=== PATIENT | male | born 1980 | race Caucasian/White ===

== ENCOUNTER 2024-12-28 08:50 | Outpatient (AMB) | payer OTHER, SELFPAY ==
--- NOTE | 2024-12-28 08:54 | MHC.OFFVIS ---
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 Accompanied by: Spouse Allergies egg Allergy (Unknown, Verified 12/28/24 09:39) Unknown latex Allergy (Unknown, Verified 12/28/24 09:39) Unknown Medication List - Last Reconciled 12/28/24 by Nataly Vasquez, HAN erenumab-aooe (Aimovig Autoinjector) 140 mg subcut Q4W loratadine 10 mg PO DAILY PRN metformin 500 mg PO DAILY montelukast 10 mg PO QPM pregabalin 75 mg PO BEDTIME rosuvastatin 5 mg PO DAILY HPI Comments Details: Chepe is a 44-year-old male patient with a past medical history of Asperger's disorder, chronic cervical pain, chronic low back pain, degenerative arthritis of the cervical spine, migraines with aura, mood disorder, insomnia, and tremor of both hands who I was following at [facility] for migraine. He is here today to reestablish care as a new patient at [facility]. Chepe has had headaches since childhood and have perhaps worsened into his adulthood. Headaches have always been a part of his day-to-day life and he feels that his headaches have been relatively consistent the wax and wane in severity and intensity but can become incapacitating. Headaches can often be accompanied by colors in his vision, light sensitivity, sound sensitivity, and nausea as well as vomiting when headaches become more severe. His headaches can be holocephalic. He has tried numerous first-line agents in the past that have been unsuccessful including: Topiramate-no benefit Lyrica-no benefit Aimovig-no benefit Emgality-no benefit Aimovig-140 currently on with some benefit Ubrelvy-no benefit Since the time of our last visit together, he does feel that the Aimovig 140 subcutaneous monthly injections have helped to improve the severity of his migraines. He still however has a migraine/some level of head pain every day. Head pain can move around but sometimes can be holocephalic or predominantly behind his right eye. Pain can be sharp or throbbing. He continues to have nausea, vomiting, severe light and sound sensitivity with many of his more intense migraines. Unfortunately, Ubrelvy has not helped him for acute therapy. He has tried his girlfriend's Nurtec in the past which has been significantly beneficial for acute treatment. He mentions today that his sleep quality has been extremely poor. In addition to difficulty initiating and maintaining sleep on a regular basis, he also knows profound clenching of his teeth at night. He has tried mouth guards in the past which did not help the clenching but helped him to prevent breaking his teeth. He has however lost his mouth guard. In the past, he has tried clonidine which was not beneficial to his sleep and trazodone gave him nightmares. He believes that his sleep may be a significant factor for his ongoing migraines. He also notes that his right wrist has been extremely painful. Pain radiates into his hand and at times causes some numbness and tingling sensations throughout the whole hand. He does not have any pain in the upper part of his extremity however the pain is more localized to the wrist and hand area. This has been impacting his ability to work on his computer. He does note that he has had an EMG study perhaps about 4 years ago and he remembers that it was normal at that time. His symptoms however since then have worsened. 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) Seasonal allergies Transaminitis Urinary frequency Tremor of both hands Schizotypal personality disorder Pompholyx eczema Polyarthralgia Other insomnia Obesity Mood disorder Migraine without aura Chronic low back pain Chronic cervical pain Asperger's disorder Review of Systems Const All systems reviewed & are unremarkable except as noted in HPI and below Physical Exam Vital Signs: Last Vital Signs Pulse 79 12/28/24 09:40 Resp 16 12/28/24 09:40 BP 124/72 12/28/24 09:40 Pulse Ox 97 12/28/24 09:40 Oxygen Delivery Method Room Air 12/28/24 09:40 BMI result Body Mass Index 26.5 Const General: cooperative, healthy appearing, comfortable and no acute distress Nutritional Appearance: well nourished Orientation/consciousness: patient oriented x3 Limitations: no limitations HEENT Head: Yes normal to inspection and Yes normocephalic Eyes General: appearance normal, both eyes and all related structures Visual Gonzalez: normal visual gonzalez by confrontation Alignment and Position: alignment normal Periorbital: periorbital findings normal Eyelids: Yes eyelids normal Conjunctivae: conjunctivae normal Sclerae: sclerae normal Neuro General: patient oriented x3, tone normal and deep tendon reflexes 2+ bilaterally Cranial nerves: Yes CN's II-XII intact bilaterally and Yes Facial sensation intact/muscles of mastication intact Cognition (Neuro): normal cognition Gait exam (Neuro): Normal gait present Motor exam (neuro): 5/5 motor strength present throughout, no tremor noted and Other motor observations present (No weakness to his R wrist however he did have pain to his R wrist with ROM) Sensory Exam: double simultaneous stimulation for sensation normal Romberg Test: Negative Pupils: Normal pupillary reactivity/response: bilateral Psych Appearance: grossly normal Mental Status: mental status grossly normal Speech and movement: Normal speech and movement present and Clear speech present Affect: normal affect Attitude: cooperative Thought process: Normal thought process present Thought content: Normal thought content present Insight: Good insight present (Psych) Judgement: Good judgement present (Psych) Assessment & Plan Assessment & Plan (1) Chronic migraine without aura without status migrainosus, not intractable: Code(s): G43.709 - Chronic migraine without aura, not intractable, without status migrainosus Category: Medical (2) Insomnia: Code(s): G47.00 - Insomnia, unspecified Category: Medical (3) Right wrist pain: Code(s): M25.531 - Pain in right wrist Category: Medical Plan Chepe is a 44-year-old male patient with a past medical history of Asperger's disorder, chronic cervical pain, chronic low back pain, degenerative arthritis of the cervical spine, migraines with aura, mood disorder, insomnia, and tremor of both hands who I was following at [facility] for migraine. He is here today to reestablish care as a new patient at [facility]. His migraines have improved some in terms of severity now that he is on the Aimovig 140 subcutaneous monthly injections. He has tried his girlfriend's Nurtec in the past with some improvement. He has not had any improvement with the Ubrelvy. I will send for a trial of Nurtec and he did receive samples today. Sleep may be playing a role in his migraines. I will send for a trial of Ambien 5 mg. He was educated on the risks of this medication and how to take it safely. He was advised to take his Lyrica earlier in the evening and not take them at the same time to avoid excessive somnolence. In regards to his right hand and wrist pain/paresthesias. I think it be reasonable to perform another EMG study provided that it has been several years since he has had an EMG study and his symptoms have worsened. -continue Aimovig 140 mg subcutaneous monthly injection -start a trial of Nurtec 75 mg for abortive therapy. (Samples were provided during today's visit: 2 boxes with lot numbers: [id number] and expiration 09/2026) -small supply of Fioricet provided for emergency purposes only. Eight tablets provided for the month -trial of Ambien 5 mg at bedtime for sleep. Patient was educated on side effects and risks when taking Ambien -EMG right wrist to rule out CTS vs. Cervical radiculopathy -follow up in 1 month Medications: New zolpidem (Ambien) 5 mg PO BEDTIME PRN 30 tabs 5RF sleep rimegepant (Nurtec ODT) 75 mg PO Q OTHER DAY PRN 8 tabs 5RF migraine headache fuhiippiwz-qfbkxevgshvga-todr 50-325-40 mg 1 tab PO Q6H PRN 8 tabs 0RF pain Coding Level of Care Code New Pt Level 4 (94534) Diagnoses Chronic migraine without aura without status migrainosus, not intractable G43.709 Insomnia G47.00 Right wrist pain M25.531
[2024-12-28 09:40] VITALS: BP 124/72; PULSE 79; RESP 16; O2SAT 97; BMI 26.5
== END 2024-12-28 10:32 | disposition home or self-care (01) ==
LOC: HO.HSM 08:51
PROVIDERS: PCP Internal Medicine; Visit Provider Nurse Practitioner
DX: G43.709 Chronic migraine without aura, not intractable, without status migrainosus (principal); G47.00 Insomnia, unspecified; M25.531 Pain in right wrist
CPT/HCPCS: 99204

== ENCOUNTER → 2024-12-28 08:50 | Outpatient (BNVA) | payer OTHER, SELFPAY | PROVIDERS: PCP Internal Medicine; Visit Provider Nurse Practitioner | DX: G43.E09 Chronic migraine with aura, not intractable, without status migrainosus (principal); G47.00 Insomnia, unspecified; M25.531 Pain in right wrist; R25.1 Tremor, unspecified; Z76.89 Persons encountering health services in other specified circumstances | CPT/HCPCS: 99202 ==

== ENCOUNTER 2025-02-01 09:46 | Outpatient (REF) | payer OTHER, SELFPAY ==
--- NOTE | 2025-02-01 09:49 | EMG_ITS ---
Chief complaint: Right and left wrist pain and tremors Reason for referral: M25.531 pain in wrist, R25.1 tremor Referred by: Nataly Vasquez NP Procedure done:bilateral upper extremity Bilateral median and ulnar motor studies were performed. Bilateral median and ulnar mixed sensory studies, median and lateral antecubital brachial sensory studies and radial sensory studies were performed. EMG examination was performed. Findings: There was mild slowing of ulnar motor conduction velocity across elbow. Otherwise no significant abnormality was noted. Impression: Mild left ulnar neuropathy across elbow [place] 11367 x2 MTDD
--- OUTSIDE RECORDS SUMMARY | 2025-02-01 11:01 | XMS_ITS | Data Portability ---
Author Organization [facility] [employer] Through [employer] Address [address] [place] [address] [place] [id number] Care Team Providers Care Financial Services Rep Name Role Phone BELINDA BUSTILLO Referring Provider Assessment Encounter Date Assessment Date Assessment LastModified by Organization Details LastModified Time 05/30/2021 05/30/2021 IMPRESSION: Gene y continuous migraine, frequently debilitating, improved with Aimovig 140 mg starting September 2019, more than with Aimovig 70 mg that he started September 2018, with worsening intensity since changing from Aimovig to Ajovy in April 2020 due to insurance issues. Ongoing daily headache with both but less severe on Aimovig. The Aimovig 140 mg/mL has since been approved. As noted previously, he does have a component of daily headache but states the Aimovig is better, also easier time with the auto injector. Previously, he reported some effect from sumatriptan but now states it is not helping. He is interested in continuing to try something else. We discussed the possibility of adding rizatriptan or eletriptan, he chose the latter. He is interested in potentially trying CGRP inhibitor for rescue if this does not work. April 05, 2021 discussion -He has also tried several oral medications in the past. These include previously reported Depakote and Botox injections. He does not recall if he has ever tried sumatriptan or Imitrex. Asks about more frequent dosing of sumatriptan. -We agree that we will continue Ajovy but will try to get prior authorization to change him back to the Aimovig. We will move forward with a trial of sumatriptan. If this is helpful, we may be able to consider daily sumatriptan via good Rx. He understands that he would have to self-pay for anything beyond the number of tablets that the insurance covers. PLAN Chepe Flood May 30, 2021 FOR PREVENTION OF MIGRAINE CONTINUE Aimovig (generic name erenumab) 140 mg/mL subcutaneous autoinjector, one injection (1 mL, 140 mg) beneath the skin (``subcutaneously ) and outer upper arm, top of thigh, or abdomen. Side effects may include injection site reaction, constipation, or cramps. Postmarketing studies suggest that depression is an unusual but possible side effect. If side effect is mild, stay on the medication for a few cycles to see if you get used to this medication. If side effects are not mild, or you do not get used to the medication, stop the medication. FOR ACUTE BREAKTHROUGH MIGRAINE STOP sumatriptan START Relpax (eletriptan) 40 mg tablets, 12 tablets/11 refills, 0.5 to 1.0 tablet by mouth p.r.n. for headache, may repeat once after one half hour, maximum 2/day, 6/week. The medication is most useful when taken at the beginning of the headache, as opposed to after the headache has already gotten intense or been going on for a while. If Relpax and helps partially but not totally, you may combine Relpax with 3 tablets of the [id number]-[id number] medication naproxen (brand-name Aleve). Take the medication with a full glass of water. Do not take naproxen at the same time as ibuprofen/Motrin. Side effects to Relpax may include a brief period of tightness or pain in jaw or chest. This is not dangerous, but may be uncomfortable. Side effects to naproxen may include stomach irritation. If side effects are mild, you may continue taking the medication if it helps. If side effects are not mild, stop taking the medication. -If no improvement from Relpax, we may consider sample of CGRP inhibitor for rescue FOR INSOMNIA CONTINUE working with sleep medicine, Dr. Iglesia Hernández, currently on Seroquel 150mg nightly. Follow-up in 1 month, this may be via telemedicine medicine although if we choose to give you an office sample for your breakthrough migraines you would need to come in person. Please make sure that you have reliable video in addition to reliable Internet or come in person. I have reviewed chart note and agree with contents and with assessment/plan in particular. Saji Callahan MD, PhD [facility] [email or web address] Not available 06/04/2021 08:30:28 08/22/2021 08/22/2021 IMPRESSION: Daily continuous migraine, frequently debilitating, improved with Aimovig 140 mg starting September 2019, more than with Aimovig 70 mg that he started September 2018, with worsening intensity since changing from Aimovig to Ajovy in April 2020 due to insurance issues. Ongoing daily headache with both but less severe on Aimovig. The Aimovig 140 mg/mL approved April 2021. As noted previously, he does have a component of daily headache but states the Aimovig is better, also easier time with the auto injector, does not have welting of the injection site and is able to ambulate more easily post injection (this was not reported as an issues on Ajovy previously. Has some days of the month with decreased intensity of the migraines down to a 3/10 and without the severe jaw pain that characterizes his more severe migraines. He had a trial of sumatriptan in the winter 2021 with submaximum will affect without side effect later stating that it was not helping. He has now tried rizatriptan and is not sure if it is helping. We had discussed a trial of eletriptan at his last visit but this was denied by his insurance. We discussed moving forward with a CGRP inhibitor for rescue. He will stop by the office for an office sample of Ubrelvy. He has some interest in [facility] because of side effect of sleepiness which he would welcome. We also discussed the possibility of resuming sumatriptan hand in a different form such as nasal spray or injection in the future. We may be able to ask insurance for prior authorization for eletriptan. PLAN Chepe BealWiley Flood August 27, 2021 FOR PREVENTION OF MIGRAINE CONTINUE Aimovig (generic name erenumab) 140 mg/mL subcutaneous autoinjector, one injection (1 mL, 140 mg) beneath the skin (``subcutaneously ) and outer upper arm, top of thigh, or abdomen. Side effects may include injection site reaction, constipation, or cramps. Postmarketing studies suggest that depression is an unusual but possible side effect. If side effect is mild, stay on the medication for a few cycles to see if you get used to this medication. If side effects are not mild, or you do not get used to the medication, stop the medication. FOR ACUTE BREAKTHROUGH MIGRAINE Please stop by the office at your convenience Friday through for an office sample of Ubrelvy a new, oral medication for breakthrough migraine. It works as an antagonist of CGRP, and therefore similar to Aimovig which you are taking already for migraine prevention. We are giving you samples. Ubrelvy 50 mg oral tablets one tablet at the very beginning of migraine, may repeat after 2 hours. If you tolerate this without side effect, you may try the 100 mg tablets, maximum dose, 200 mg/24 hours. Possible side effects include ~2% chance of tiredness or nausea. There have been no serious adverse events in clinical trials. Medications such as antifungal drugs and clarithromycin should be avoided when using ubrogepant or rimegepant. In those who take medications such as verapamil, fluconazole, fluvoxamine, and those who drink grapefruit juice, the dose of ubrogepant should be 50 mg. HOLD Maxalt (generic rizatriptan) while on Ubrelvy trial. You may resume rizatriptan after your Ubrelvy sample until your next appointment when we are able to discuss effectiveness. Rizatriptan 10 mg tablet, one tablet by mouth as needed for migraine, may repeat once after one half hour, maximum 2/day, 6/week. The medication is most useful when taken at the beginning of the headache, as opposed to after the headache has already gotten intense or been going on for a while. If Maxalt helps partially but not totally, you may combine Maxalt with 3 tablets of the opvn-imb-gupebec medication naproxen (brand-name Aleve). Take the medication with a full glass of water. Do not take naproxen at the same time as ibuprofen/Motrin. Side effects to Maxalt may include a brief period of tightness or pain in jaw or chest. This is not dangerous, but may be uncomfortable. Side effects to naproxen may include stomach irritation. If side effects are mild, you may continue taking the medication if it helps. If side effects are not mild, stop taking the medication. CONTINUE working with sleep medicine, Dr. Iglesia Walting, currently on Seroquel 150mg nightly. 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 We will request prior authorization from the insurance. RAVI Kilpatrick, FERMINC [facility] Not available 09/26/2021 21:41:03 10/17/2021 10/17/2021 IMPRESSION: Daily continuous migraine, frequently debilitating, improved with Aimovig 140 mg starting September 2019, more than with Aimovig 70 mg that he started September 2018, with worsening intensity since changing from Aimovig to Ajovy in April 2020 due to insurance issues. Ongoing daily headache with both but less severe on Aimovig. The Aimovig 140 mg/mL approved April 2021. As noted previously, he does have a component of daily headache but states the Aimovig is better, also easier time with the auto injector, does not have welting of the injection site and is able to ambulate more easily post injection (this was not reported as an issues on Ajovy previously. Has some days of the month with decreased intensity of the migraines down to a 3/10 and without the severe jaw pain that characterizes his more severe migraines. He had a trial of sumatriptan in the winter 2021 with submaximum will affect without side effect later stating that it was not helping. He has now tried rizatriptan and is not sure if it is helping. Eletriptan was denied by insurance CURRENTLY October 17, 2021: Ubrelvy has been approved by his insurance but he has not yet tried it. He did not start with an office sample as he was unable to make it to the office. We have confirmed that the prescription was sent. He agrees to call the pharmacy this evening or tomorrow morning and asked them to mail out the Ubrelvy prescription so that he can try it. I asked if there was anything else and he asks what happened to his appointment with Dr. Callahan. He said that he was supposed to see Dr. Callahan. I do not see anything from the case message review. I asked if there was anything that I might be able to help him with that he says that he was told to see Dr. Callahan. I asked by whom and he said another doctor. PLAN Chepe Flood October 17 2021 FOR PREVENTION OF MIGRAINE CONTINUE Aimovig (generic name erenumab) 140 mg/mL subcutaneous autoinjector, one injection (1 mL, 140 mg) beneath the skin (``subcutaneously ) and outer upper arm, top of thigh, or abdomen. Side effects may include injection site reaction, constipation, or cramps. Postmarketing studies suggest that depression is an unusual but possible side effect. If side effect is mild, stay on the medication for a few cycles to see if you get used to this medication. If side effects are not mild, or you do not get used to the medication, stop the medication. FOR ACUTE BREAKTHROUGH MIGRAINE Please call the pharmacy in [place] and asked them to send you the Ubrelvy prescription. Please try it 1/2 of a 100 mg tablet, (50 mg) one tablet at the very beginning of migraine, may repeat after 2 hours. If you tolerate this without side effect, you may try the full 100 mg tablet, maximum dose, 200 mg/24 hours. Possible side effects include ~2% chance of tiredness or nausea. There have been no serious adverse events in clinical trials. Medications such as antifungal drugs and clarithromycin should be avoided when using ubrogepant or rimegepant. In those who take medications such as verapamil, fluconazole, fluvoxamine, and those who drink grapefruit juice, the dose of ubrogepant should be 50 mg. CONTINUE working with sleep medicine, Dr. Iglesia Hernández, currently on Seroquel 150mg nightly. Follow-up in [address] Callahan to address the concern you did not wish to discuss with me today. Though this is a separate issue, I expect he would likely be able to check in on your Ubrelvy trial at this follow-up appointment as well. I have reviewed chart note and agree with contents and with assessment/plan in particular. Saji Callahan MD, PhD [facility] [email or web address] Not available 10/18/2021 18:19:02 07/03/2022 07/03/2022 IMPRESSION: Daily continuous migraine, frequently debilitating, improved with Aimovig 140 mg starting September 2019, more than with Aimovig 70 mg that he started September 2018, with worsening intensity since changing from Aimovig to Ajovy in April 2020 due to insurance issues. We will get appropriate lab work for twitching as detailed in the orders below. If these are on revealing, we can consider EEG although I think we have a long duration without anything more seizure-like the likelihood of epileptiform abnormality is low. HEADACHES: Ongoing headache but less severe on Aimovig. Ubrelvy newly started since September 2021, helping without side effects if he takes it early enough. Prescription renewals are given PLAN Chepe Flood October 17 2021 TWITCHING Lab work as detailed in orders below FOR PREVENTION OF MIGRAINE CONTINUE Aimovig (generic name erenumab) 140 mg/mL subcutaneous autoinjector, one injection (1 mL, 140 mg) beneath the skin (``subcutaneously ) and outer upper arm, top of thigh, or abdomen. FOR ACUTE BREAKTHROUGH MIGRAINE CONTINUE Ubrelvy 100 mg tablets: 1/2 or 1 tablet a 100 mg tablet, at the very beginning of migraine, may repeat after 2 hours. Medications such as antifungal drugs and clarithromycin should be avoided when using ubrogepant or rimegepant. In those who take medications such as verapamil, fluconazole, fluvoxamine, and those who drink grapefruit juice, the dose of ubrogepant should be 50 mg. CONTINUE working with sleep medicine, Dr. Iglesia Hernández, currently on Seroquel 150mg nightly. Follow-up in 1 month [email or web address] Not available 07/03/2022 15:47:39 08/14/2022 08/14/2022 IMPRESSION: --Daily continuous migraine, frequently debilitating -- September 2019 Aimovig 140 mg helping more althouch still insufficiently, more than with Aimovig 70 mg that he started September 2018, whic in turn helped more than with switch from Aimovig to Ajovy in April 2020 due to insurance issues. --July 03, 2022 multifocal twitching since his 30s brought up as a new issue July 05 2022 laboratories for muscle twitching vitamin D = 15.5, low, other laboratories unrevealing --Aug 14 2022 focus on headaches especially bad when bad weather comes in We will place prescriptions for vitamin D with hopes that this may help his twitching very well may not be the whole issue being that has been going on since his 30s. If this does not help, then I am not clear what the twitching is from. If he comes in and I can examine, perhaps this will elucidate. I do not believe this is seizure given his description. LABORATORIES July 04, 2022 PTH 47, normal, vitamin D15.5 Low, TSH and free T4 both normal, testosterone 301, normal, ferritin 158 normal, magnesium 2.1 normal, phosphorus 3.3 normal, calcium 10.1 normal We will get appropriate lab work for twitching as detailed in the orders below. If these are on revealing, we can consider EEG although I think we have a long duration without anything more seizure-like the likelihood of epileptiform abnormality is low. HEADACHES: Depakote, topiramate and various CGRP medications before current CGRP medication regimen helped years sufficiently. Current regimen still does not help sufficiently: Aimovig 140 mg for prevention and Ubrelvy for breakthrough. There is a particular tendency for bad headaches clear of Ubrelvy when there is a pressure drop with bad weather. I suggest acetazolamide which is sometimes used to counter the effects of pressure drop with rapid Ascent, such as in mountain climbing. I described possible side effects and he is willing to give this a try. PLAN Chepe Flood Aug 14 2022 FOR PREVENTION OF MIGRAINE Acetazolamide, 250 mg tablets, 1 tablet twice a day Possible side effects include , nausea, fatigue, tingling, diarrhea. If you have very mild side effects, wait a few days to see if your body gets used to it. If side effects do not go away or are not mild, stop the medication. If there are no side effects, but acetazolamide does not help your headache when a storm moves into town, you may try doubling the dose, again watching out for side effects. CONTINUE Aimovig (generic name erenumab) 140 mg/mL subcutaneous autoinjector, one injection (1 mL, 140 mg) beneath the skin (``subcutaneously ) and outer upper arm, top of thigh, or abdomen. FOR ACUTE BREAKTHROUGH MIGRAINE CONTINUE Ubrelvy 100 mg tablets: 1/2 or 1 tablet a 100 mg tablet, at the very beginning of migraine, may repeat after 2 hours. Medications such as antifungal drugs and clarithromycin should be avoided when using ubrogepant or rimegepant. In those who take medications such as verapamil, fluconazole, fluvoxamine, and those who drink grapefruit juice, the dose of ubrogepant should be 50 mg. CONTINUE working with sleep medicine, Dr. Iglesia Hernández, currently on Seroquel 150mg nightly. Follow-up in 1 month [email or web address] Not available 08/14/2022 16:50:57 Plan of Treatment Reminders Order Date Submit Date Provider Last Modified By Organization Details Last Modified Time Details Appointments None recorded. Lab calcium, serum or plasma - E83.50 2022 023 RICK [facility], [address] [place], [address], 3 20:59:44 phosphorus, serum or plasma - E86.39 2022 023 RICK [facility], [address] [place], [address], 3 20:59:46 magnesium, serum or plasma - E61.2 2022 023 RICK [facility], [address] [place], [address], 3 20:59:46 ferritin, serum or plasma - R79.89 2022 023 [email or web address] 1 [facility], [address] [place], [address], 3 16:11:47 TSH, serum or plasma - E07.9 2022 023 RICK [facility], [address] [place], [address], 3 21:22:49 T4, free, serum - E07.9 2022 023 RICK [facility], [address], [place], [address], 3 21:22:47 PTH (parathyroi d hormone), intact, serum or plasma - E21.5 2022 023 RICK [facility], [address], [place], [address], 3 21:59:49 vitamin D, 25-hydroxy, total, serum - E55.9 2022 023 RICK [facility], [address], [place], [address], 3 21:22:50 testosteron e, total, serum - Z13.29 2022 023 RICK [facility], [address], [place], [address], 3 21:22:48 ferritin, serum or plasma - R79.89 2022 023 RICK [facility], [address], [place], [address], 3 21:22:44 Referral None recorded. Procedures None recorded. Surgeries None recorded. Imaging None recorded. Medication Orders Vitamin D2 1,250 mcg (50,000 unit) capsule 2022 023 [id number], [address], [place], [id number], 3 16:53:03 Vitamin D3 10 mcg (400 unit) capsule 2022 023 [id number], [address], [place], [id number], 3 16:53:02 acetazolami de 250 mg tablet 2022 023 [id number], [address], [place], [id number], 3 16:53:04 Aimovig Autoinjecto r 140 mg/mL subcutaneou s auto-inject or 2022 023 [facility], [address], [place], [address], 3 15:34:12 Ubrelvy 100 mg tablet 2022 023 [facility], [address], [place], [address], 3 15:34:19 Relpax 40 mg tablet 2021 022 [email or web address] [id number], [address], [place], [id number], 2 16:41:22 Patient TargetsNo targets recorded. Patient Instructions Encounter Date Encounter Id Patient Instructions Last Modified By Organization Details Last Modified Time 05/30/2021 [id number] PREVIOUS MEDICATIONS He recollects having tried Depakote in the past He recalled topiramate which did not help headaches Botox has made headaches worse Sumatriptan, may have tried this in the past, winter 2021 trial -submax effect initially and later not helping PREVIOUS DISCUSSIONS April 05, 2021 discussion -He has also tried several oral medications in the past. These include previously reported Depakote and Botox injections. He does not recall if he has ever tried sumatriptan or Imitrex. Asks about more frequent dosing of sumatriptan. -We agree that we will continue Vinicius but will try to get prior authorization to change him back to the Aimovig. We will move forward with a trial of sumatriptan. If this is helpful, we may be able to consider daily sumatriptan via good Rx. He understands that he would have to self-pay for anything beyond the number of tablets that the insurance covers. July 12, 2020: Vinicius pendant injector either was defective or he used to it improperly. I offered for him to come in for a sample and for me to observe his usage. He declined. We decided he would read the insert carefully to see if injection technique for Ajovy is slightly different than in injection technique for Aimovig. Should he again fell, he m ight change his mind and come in for a sample and for me to observe his injection and help out as needed. He wondered about alternative treatments for his c rushing jaw pain. We discussed trigger point injections and he declines as he h ates shots. Again, salomon correia might change his mind if the jaw pain continues after he successfully uses Ajovy. Not available 05/30/2021 16:43:34 08/22/2021 [id number] PREVIOUS MEDICATIONS He recollects having tried Depakote in the past He recalled topiramate which did not help headaches Botox has made headaches worse Sumatriptan, may have tried this in the past, winter 2021 trial -submax effect initially and later not helping Rizatriptan: Submaximal effect, no side effect. Eletriptan was never tried as denied by insurance PREVIOUS DISCUSSIONS April 05, 2021 discussion -He has also tried several oral medications in the past. These include previously reported Depakote and Botox injections. He does not recall if he has ever tried sumatriptan or Imitrex. Asks about more frequent dosing of sumatriptan. -We agree that we will continue Ajovy but will try to get prior authorization to change him back to the Aimovig. We will move forward with a trial of sumatriptan. If this is helpful, we may be able to consider daily sumatriptan via good Rx. He understands that he would have to self-pay for anything beyond the number of tablets that the insurance covers. July 12, 2020: Ajovy pendant injector either was defective or he used to it improperly. I offered for him to come in for a sample and for me to observe his usage. He declined. We decided he would read the insert carefully to see if injection technique for Ajovy is slightly different than in injection technique for Aimovig. Should he again fell, he m ight change his mind and come in for a sample and for me to observe his injection and help out as needed. He wondered about alternative treatments for his c rushing jaw pain. We discussed trigger point injections and he declines as he h ates shots. Again, salomon correia might change his mind if the jaw pain continues after he successfully uses Ajovy. Not available 09/26/2021 21:40:19 10/17/2021 [id number] PREVIOUS MEDICATIONS He recollects having tried Depakote in the past He recalled topiramate which did not help headaches Botox has made headaches worse Sumatriptan, may have tried this in the past, winter 2021 trial -submax effect initially and later not helping Rizatriptan: Submaximal effect, no side effect. Eletriptan was never tried as denied by insurance PREVIOUS DISCUSSIONS August 27 2021: [facility] sleepiness which he would welcome. We also discussed the possibility of resuming sumatriptan hand in a different form such as nasal spray or injection in the future. We may be able to ask insurance for prior authorization for eletriptan. April 05, 2021 discussion -He has also tried several oral medications in the past. These include previously reported Depakote and Botox injections. He does not recall if he has ever tried sumatriptan or Imitrex. Asks about more frequent dosing of sumatriptan. -We agree that we will continue Ajovy but will try to get prior authorization to change him back to the Aimovig. We will move forward with a trial of sumatriptan. If this is helpful, we may be able to consider daily sumatriptan via good Rx. He understands that he would have to self-pay for anything beyond the number of tablets that the insurance covers. July 12, 2020: Ajovy pendant injector either was defective or he used to it improperly. I offered for him to come in for a sample and for me to observe his usage. He declined. We decided he would read the insert carefully to see if injection technique for Ajovy is slightly different than in injection technique for Aimovig. Should he again fell, he m ight change his mind and come in for a sample and for me to observe his injection and help out as needed. He wondered about alternative treatments for his c rushing jaw pain. We discussed trigger point injections and he declines as he h ates shots. Again, salomon correia might change his mind if the jaw pain continues after he successfully uses Ajovy. Not available 10/17/2021 18:39:18 07/03/2022 [id number] PREVIOUS MEDICATIONS He recollects having tried Depakote in the past He recalled topiramate which did not help headaches Botox has made headaches worse Sumatriptan, may have tried this in the past, winter 2021 trial -submax effect initially and later not helping Rizatriptan: Suboptimal benefit, no side effect. Eletriptan was never tried as denied by insurance PREVIOUS DISCUSSIONS August 27 2021: He has some interest in Nurtec because of side effect of sleepiness which he would welcome. We also discussed the possibility of resuming sumatriptan hand in a different form such as nasal spray or injection in the future. We may be able to ask insurance for prior authorization for eletriptan. April 05, 2021 discussion -He has also tried several oral medications in the past. These include previously reported Depakote and Botox injections. He does not recall if he has ever tried sumatriptan or Imitrex. Asks about more frequent dosing of sumatriptan. -We agree that we will continue Ajovy but will try to get prior authorization to change him back to the Aimovig. We will move forward with a trial of sumatriptan. If this is helpful, we may be able to consider daily sumatriptan via good Rx. He understands that he would have to self-pay for anything beyond the number of tablets that the insurance covers. July 12, 2020: Ajovy pen injector either was defective or he used to it improperly. I offered for him to come in for a sample and for me to observe his usage. He declined. We decided he would read the insert carefully to see if injection technique for Ajovy is slightly different than in injection technique for Aimovig. Should he again fell, he m ight change his mind and come in for a sample and for me to observe his injection and help out as needed. He wondered about alternative treatments for his c rushing jaw pain. We discussed trigger point injections and he declines as he h ates shots. Again, salomon correia might change his mind if the jaw pain continues after he successfully uses Ajovy. Discussion across issues of diagnoses and management and same day associated chart review and management greater than 50% greater than 40 minutes rhonda Not available 07/03/2022 15:47:17 08/14/2022 [id number] PREVIOUS MEDICATIONS He recollects having tried Depakote in the past He recalled topiramate which did not help headaches Botox has made headaches worse Sumatriptan, may have tried this in the past, winter 2021 trial -submax effect initially and later not helping Rizatriptan: Suboptimal benefit, no side effect. Eletriptan was never tried as denied by insurance PREVIOUS DISCUSSIONS August 27 2021: He has some interest in Nurtec because of side effect of sleepiness which he would welcome. We also discussed the possibility of resuming sumatriptan hand in a different form such as nasal spray or injection in the future. We may be able to ask insurance for prior authorization for eletriptan. April 05, 2021 discussion -He has also tried several oral medications in the past. These include previously reported Depakote and Botox injections. He does not recall if he has ever tried sumatriptan or Imitrex. Asks about more frequent dosing of sumatriptan. -We agree that we will continue Ajovy but will try to get prior authorization to change him back to the Aimovig. We will move forward with a trial of sumatriptan. If this is helpful, we may be able to consider daily sumatriptan via good Rx. He understands that he would have to self-pay for anything beyond the number of tablets that the insurance covers. July 12, 2020: Ajovy pen injector either was defective or he used to it improperly. I offered for him to come in for a sample and for me to observe his usage. He declined. We decided he would read the insert carefully to see if injection technique for Ajovy is slightly different than in injection technique for Aimovig. Should he again fell, he m ight change his mind and come in for a sample and for me to observe his injection and help out as needed. He wondered about alternative treatments for his c rushing jaw pain. We discussed trigger point injections and he declines as he h ates shots. Again, salomon correia might change his mind if the jaw pain continues after he successfully uses Ajovy. Discussion across issues of diagnoses and management and same day associated chart review and management greater than 50% greater than 40 minutes mrossen Not available 08/14/2022 15:50:38 Reason for Referral None Reported. Results Created Date Observation Date Name Description Value Unit Range Abnormal Flag Note LastModifiedBy Organization Detail LastModifiedTime 07/05/1907/04/2022 CALCI UM calcium 10.1 mg/dL (8.6-1 0.5) Not Available [facility] (Centralized Electronic Ordering - All Locations) Patient Can Go To The Location Of Their Choice, 07/04/2022 20:59:44 07/05/1907/04/2022 PHOSP HORUS phosphorus 3.3 mg/dL (2.5-4 .5) Not Available [facility] (Centralized Electronic Ordering - All Locations) Patient Can Go To The Location Of Their Choice, 07/04/2022 20:59:45 07/05/1907/04/2022 MAGNE SIUM magnesium 2.1 mg/dL (1.6-2 .3) Not Available [facility] (Centralized Electronic Ordering - All Locations) Patient Can Go To The Location Of Their Choice, 07/04/2022 20:59:46 07/05/1907/04/2022 TAVARES TIN ferritin 158 NG/mL (16-29 4) Not Available [facility] (Centralized Electronic Ordering - All Locations) Patient Can Go To The Location Of Their Choice, 07/04/2022 21:22:44 07/05/1907/04/2022 FREE T4 free T4 1.16 NG/dL (0.70- 1.80) Not Available [facility] (Centralized Electronic Ordering - All Locations) Patient Can Go To The Location Of Their Choice, 07/04/2022 21:22:47 07/05/1907/04/2022 TESTO STERO NE testosterone 301 NG/dL (280-8 00) Not Available [facility] (Centralized Electronic Ordering - All Locations) Patient Can Go To The Location Of Their Choice, 07/04/2022 21:22:48 07/05/1907/04/2022 TSH TSH 1.11 uIU/m L (0.4-4 .2) Not Available [facility] (Centralized Electronic Ordering - All Locations) Patient Can Go To The Location Of Their Choice, [id number] 07/04/2022 21:22:49 07/05/19 23 07/04/2022 25OH VITAM IN D 25OH vitamin D 15.5 NG/mL (20-50 ) low Not Available [facility] (Centralized Electronic Ordering - All Locations) Patient Can Go To The Location Of Their Choice, [id number] 07/04/2022 21:22:50 07/05/19 23 07/04/2022 PTH, INTAC T PTH, intact 47 pg/mL (15-65 ) Not Available [facility] (Centralized Electronic Ordering - All Locations) Patient Can Go To The Location Of Their Choice, [id number] 07/04/2022 21:59:49 Result Notes None recorded. Procedures Surgical History Date Name Laterality Status Provider Name and Address Organization Details Recorded Time 08/14/2022 DATA REVIEW completed Saji Callahan MD [address] [place] [address], [id number], [facility] Neurology [facility] 08/14/2022 16:41:19 Imaging Results None recorded. Procedure Notes None recorded. Medical Equipment None Reported. Medications Name Sig Start Date Stop Date Status Note LastModified by Organization Details LastModified Time quetiapin e 25 mg tablet TAKE 1 TO 3 TABLETS BY MOUTH DAILY AT BEDTIME 07/03 completed Not Available Not Available Not Available clonidine HCl 0.1 mg tablet TAKE 1 TABLET BY MOUTH EVERY NIGHT AT BEDTIME 07/03 completed Not Available Not Available Not Available sumatript an 100 mg tablet 0.5 to 1.0 tablet by mouth at the beginnin g of headache headache , may repeat once after one hour, maximum 200 mg/day, 600mg/we ek. 05/30 completed Didin't help Not Available Not Available Not Available rizatript an 10 mg tablet one tablet by mouth as needed for migraine , may repeat once after one half hour, maximum 2/day, 6/week 09/26 completed Not Available Not Available Not Available clonazepa m 1 mg tablet TAKE 1 TO 2 TABLETS BY MOUTH DAILY AT BEDTIME 07/03 completed Not Available Not Available Not Available acetazola mide 250 mg tablet active Not Available Not Available No t Available doxepin 10 mg capsule TAKE 1 CAPSULE BY MOUTH EVERY NIGHT AT BEDTIME 07/03 completed Not Available Not Available Not Available Vitamin D3 10 mcg (400 unit) tablet TAKE 2 TABLETS BY MOUTH EVERY DAY WITH MEALS FOR 30 DAYS active Not Available Not Available No t Available amitripty line 25 mg tablet TAKE 1 TO 4 TABLETS BY MOUTH EVERY NIGHT AT BEDTIME 07/03 completed Not Available Not Available Not Available metoclopr amide 5 mg tablet TAKE 1 TO 2 TABLETS BY MOUTH EVERY NIGHT AT BEDTIME 07/03 completed Not Available Not Available Not Available zolpidem 5 mg tablet TK 1 TO 2 TS PO QHS PRN 07/03 completed Not Available Not Available Not Available ergocalci ferol (vitamin D2) 1,250 mcg (50,000 unit) capsule active Not Available Not Available Not Available zaleplon 5 mg capsule TAKE 1 CAPSULE BY MOUTH EVERY NIGHT AT BEDTIME 07/03 completed Not Available Not Available Not Available eletripta n 40 mg tablet 06/21 completed Not Available Not Available Not Available cyclobenz aprine 5 mg tablet TAKE 1 TO 3 TABLETS BY MOUTH EVERY NIGHT AT BEDTIME 07/03 completed Not Available Not Available Not Available eszopiclo ne 1 mg tablet TK 1 TO 3 TS PO QHS FOR 30 DAYS 07/03 completed Not Available Not Available Not Available Rozerem 8 mg tablet TAKE 1 TABLET BY MOUTH EVERY NIGHT AT BEDTIME 07/03 completed Not Available Not Available Not Available Vitamin D3 10 mcg (400 unit) capsule Take 2 capsules every day by oral route with meals for 30 days. 2022 active Not Available Not Available Not Avai lable quetiapin e 50 mg tablet TAKE 3 TABLETS BY MOUTH EVERY NIGHT AT BEDTIME active Not Available Not Available No t Available Belsomra 10 mg tablet TAKE 1 TABLET BY MOUTH EVERY NIGHT AT BEDTIME 07/03 completed Not Available Not Available Not Available Aimovig Autoinjec tor 70 mg/mL subcutane ous auto-inje ctor INJECT 1 MILLILIT ER SUBCUTAN EOUSLY ONCE A MONTH IN ABDOMEN THIGHOR OUTER AREA OF UPPER ARM 07/03 completed Not Available Not Available Not Available Aimovig Autoinjec tor 140 mg/mL subcutane ous auto-inje ctor active Not Available Not Available Not Available Ubrelvy 100 mg tablet 0.5 to 1 tablet at the beginnin g of headache , may repeat after 2 hours, max dose 200 mg per 24 hours 2022 active Not Available Not Available Not Avai lable Ajovy 225 mg/1.5 mL subcutane ous auto-inje ctor 05/03 completed Changed to Aimovig, changed pharmacy at his request Not Available Not Available Not Available Vitals None Recorded Social History None recorded. Functional Status None recorded. Mental Status None recorded. Family History Nothing Reported. Medical History No medical history recorded. Past Encounters Encounter ID Performer Location Encounter Start Date Encounter Closed Date Diagnosis/Indication Diagnosis SNOMED-CT Code Diagnosis ICD10 Code Diagnosis IMO Codes Diagnosis Note [id number] Saji Callahan MD [address] [place] [address] 07/12/2020 16:16:36 07/13/2020 11:11:03 Migraine without aura 19032492 G43.009 PLAN Chepe Flood July 12, 2020 For prevention of migraine: To replace Aimovig which is now no longer allowed by your insurance: Ajovy (also known as fremanezum ab) 225 mg subcutaneo us injection, one injection beneath the skin ( subcutan eously ) and outer arm, top of thigh, abdomen, holding syringe/ne edle at 45 angle. Side effects may include constipati on, nausea, depression , cramps, increased headache (each perhaps 5-6% in post marketing studies. Rare injection site reaction or allergic reaction may occur. (There were no severe allergic reactions, no anaphylaxi s, in the pivotal clinical trial with 581 participan ts.) If you have an allergic reaction, please contact our office or primary care immediatel y. For insomnia, continue working with sleep medicine, Dr. Iglesia Hernández, currently on trial of Seroquel 25 mg-100 mg nightly. Follow-up in 1 month. [id number] ANTONIA TOMLINSON PA-C [address] [place] [address] 04/05/2021 16:33:32 04/27/2021 15:20:28 Migraine without aura [id number] G43.009 [id number] ANTONIA TOMLINSON PA-C [address] [place] [id number] 05/03/2021 14:50:52 05/10/2021 13:04:37 Migraine without aura [id number] G43.009 [id number] ANTONIA TOMLINSON PA-C [facility] [address] [place] [address] [place] [id number] 05/30/2021 15:18:50 06/04/2021 11:00:00 Migraine without aura [id number] G43.009 [id number] ANTONIA TOMLINSON PA-C [facility] [address] [place] [address] [place] [id number] 08/22/2021 15:06:52 08/27/2021 10:11:06 Migraine without aura [id number] G43.009 [id number] ANTONIA TOMLINSON PA-C [facility] [address] [place] [address] [place] [address] 10/17/2021 15:37:15 10/30/2021 18:46:49 Migraine without aura [id number] G43.009 [id number] Saji Callahan MD [facility] [address] [place] [address] [place] [id number] 07/03/2022 15:01:18 07/03/2022 18:14:19 Migraine without aura [id number] G43.009 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 Saji Callahan MD [facility] [address] [place] [address] [place] [id number] 08/14/2022 15:38:46 08/14/2022 17:47:38 Migraine without aura [id number] G43.009 Myoclonus [id number] G25.3 Health Concerns Section Related Observation LastModified by Organization Detai ls LastModified Time None Recorded Concern Status LastModified by Organization Details LastModified Time None Recorded Advance Directives Directive None Recorded Payers Insurance Date Sequence Insurance Name Policy Number Policy Venegas Covered Member ID Venegas Member ID Guarantor Name 07/01/2022 1 [place] [facility] Chepe Flood [id number] Chepe Flood 07/03/2022 1 [place] PRIOR [place] 2022 - [facility] (MEDICAID) Chepe Flood [id number] Chepe Flood 07/01/2022 1 [facility] [facility] Chepe Flood [id number] Chepe Flood 07/01/2022 1 [place]IOR [place] 2022 - [facility] (MEDICAID) Chepe Flood [id number] Chepe Flood 08/11/2022 1 [facility] [facility] Chepe Flood [id number] Chepe Flood Notes Date Note Type Note Provider Name and Address Organization Details Recorded Time 05/30/2021 text/html Follow-up migraine. He is seen via telemedicine today. There was difficulty with the link initially and after several attempts with were finally able to connect. He is seated in the dark with light from his screen reflecting off of his sunglasses. Since May 03, 2021, he reports that he has been taking sumatriptan and it has not been helping very much. He has tried about 1 pill and not necessarily a second. It is not clear if he is starting this at the beginning of headache. He tried it last night and it did not help. He reports that his headaches never really seem to go away. He has had the Aimovig approved and sent into his pharmacy and he does say that this is 1 million times better. He prefers the injection design and is now able to use the auto injector himself rather than having somebody else do it for him.He says he prefers the dark room both as personal preference and due to the headaches. May 03 2021 encounter is reviewed:Since April 05, 2021, he reports that he is doing terrible . Initially states that there has been no improvement since his last visit 1 month ago but when specifically asking about the addition of sumatriptan, states I guess (migraines) a little less intense . Difficult to quantify: Pounding does not go away but is less intense. Has ongoing jaw and eye pain. He has not noted any side effects but wonders if there is something stronger.In the interim, change from Ajovy to Aimovig has been approved by his insurance as of this afternoon. April 05, 2021 encounter is reviewed:Since he was last seen on June 11, he reports that he has ongoing daily migraines. He defines a headache as something that is cured with Tylenol where as a migraine is stabbing pain like a railroad spike. He also has severe jaw pain. He does not like the autoinjector of the Ajovy and requires assistance. This was changed due to insurance barriers last year. He believes that on the Aimovig during the last holiday season before this was changed his headaches were not as severe and the pounding nail sensation was somewhat duller.He has ongoing episodes of coughing nausea with emesis, blood-tinged. He has been to the ED for his headache when he is d ragged in by others due to their witnessing the blood-tinged coughing with results in g oing through hoops and ultimately receives a prescription for Percocet for the severe headaches. He has tried other oral medications in the past, these were named and remembered at the time of his initial neurology consultation but now does not recollect. He does not recall a trial of sumatriptan in the past. He wonders why it would not be given on a daily basis.He continues with sleep medicine and is currently taking Seroquel 150 mg at night. Presenting symptomatology is reviewed from October 07, 2018 initial neurology consultation: He has had daily continuous migraine for many years, as long as he can remember. There was no trauma, illness or other life event associated with onset of this situation. Migraine fluctuates during the day, but there is always at least a little bit of pain. When it gets bad, it may emerge as intense stabbing in his eye, almost always his right eye, but at least a few times his left eye. Other times there is pounding throughout his head. He has daily continuous intense photophobia so that he always needs to wear sunglasses and he rarely goes out during the daytime. He has light sensitivity only when bad migraine is present. He has nausea with bad migraine and frequent emesis. Sometimes there is blood with his emesis. Primary care is aware of this. He does not drink alcohol as it makes his headache worse. The only caffeinated drink he takes his coffee and that only rarely. He reports no medications. He has tried all the medications. Once that he remembers include Depakote, which did not help headache, and Botox injections, which may headache worse. He also tried topiramate which did not help his headaches. Saji Callahan MD [address] [place] [address] [place], [phone], [place] [facility] Neurology [facility] 06/04/2021 08:30:43 08/22/2021 text/html Follow-up migraine. He is seen via telemedicine today. He has a better Internet connection today. He continues to wear sunglasses but there is a bit more ambient light to see him today. Since May 30, 2021, he initially says that he has a headache like usual. I asked him specifically how it is going on Aimovig 140 mg/mL which changed from Ajovy after it was approved in April 2021. He says that it is also, that it works much better than the other 1 and that it only takes a minute for the autoinjection. He says there is no welt on his leg and he is able to walk. He says that the migraines are not so bad sometimes. There are certain days where the migraine is only a 3/10. There are still some days that are off the scale where his jaw feels broken and he feels like he wants to . They are worsened by the weather and wishes that he could f ix the weather problem. When asked how many days per week or per month he has severe migraines versus less severe, it is bad a lot of the time and he says that today is a good day where he is able to stand up and talk but his head is still pounding. He has tried riztriptan for breakthrough migraine and does not think it is helping. We had given him a prescription for Eletriptan at his last visit in May but it was denied by insurance and he was given a subsequent prescription for rizatriptan. This was a change from prior sumatriptan which he also did not find helpful. He has not had a side effect from either. May 30, 2021 neurology follow-up reviewed:Since May 03, 2021, he reports that he has been taking sumatriptan and it has not been helping very much. He has tried about 1 pill and not necessarily a second. It is not clear if he is starting this at the beginning of headache. He tried it last night and it did not help. He reports that his headaches never really seem to go away. He has had the Aimovig approved and sent into his pharmacy and he does say that this is 1 million times better. He prefers the injection design and is now able to use the auto injector himself rather than having somebody else do it for him.He says he prefers the dark room both as personal preference and due to the headaches. May 03 2021 encounter is reviewed:Since April 05, 2021, he reports that he is doing terrible . Initially states that there has been no improvement since his last visit 1 month ago but when specifically asking about the addition of sumatriptan, states I guess (migraines) a little less intense . Difficult to quantify: Pounding does not go away but is less intense. Has ongoing jaw and eye pain. He has not noted any side effects but wonders if there is something stronger.In the interim, change from Ajovy to Aimovig has been approved by his insurance as of this afternoon. April 05, 2021 encounter is reviewed:Since he was last seen on June 11, he reports that he has ongoing daily migraines. He defines a headache as something that is cured with Tylenol where as a migraine is stabbing pain like a railroad spike. He also has severe jaw pain. He does not like the autoinjector of the Ajovy and requires assistance. This was changed due to insurance barriers last year. He believes that on the Aimovig during the last holiday season before this was changed his headaches were not as severe and the pounding nail sensation was somewhat duller.He has ongoing episodes of coughing nausea with emesis, blood-tinged. He has been to the ED for his headache when he is d ragged in by others due to their witnessing the blood-tinged coughing with results in g oing through hoops and ultimately receives a prescription for Percocet for the severe headaches. He has tried other oral medications in the past, these were named and remembered at the time of his initial neurology consultation but now does not recollect. He does not recall a trial of sumatriptan in the past. He wonders why it would not be given on a daily basis.He continues with sleep medicine and is currently taking Seroquel 150 mg at night. Presenting symptomatology is reviewed from October 07, 2018 initial neurology consultation: He has had daily continuous migraine for many years, as long as he can remember. There was no trauma, illness or other life event associated with onset of this situation. Migraine fluctuates during the day, but there is always at least a little bit of pain. When it gets bad, it may emerge as intense stabbing in his eye, almost always his right eye, but at least a few times his left eye. Other times there is pounding throughout his head. He has daily continuous intense photophobia so that he always needs to wear sunglasses and he rarely goes out during the daytime. He has light sensitivity only when bad migraine is present. He has nausea with bad migraine and frequent emesis. Sometimes there is blood with his emesis. Primary care is aware of this. He does not drink alcohol as it makes his headache worse. The only caffeinated drink he takes his coffee and that only rarely. He reports no medications. He has tried all the medications. Once that he remembers include Depakote, which did not help headache, and Botox injections, which may headache worse. He also tried topiramate which did not help his headaches. ANTONIA TOMLINSON PA-C [address] [place] [address] [place], [phone], [facility] 09/26/2021 21:41:17 10/17/2021 text/html Follow-up migraine. He is seen via telemedicine today. He continues to wear sunglasses.Since his August neurology follow-up, he is doing terribly. 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 He contacted the office and ultimately, we requested prior authorization from his insurance which was approved and I sent a prescription to his pharmacy in [place] and his appointment was moved out so that he would have a chance to try it.Migraines remain about the same as his last visit. I recollected as a hint of improvement, back that he said the migraines are not so bad sometimes and sometimes they of 3 out of 10 days and then there is days where it is really bad and the jaw feels like it is going to break. Currently says they are about the same before, not necessarily improved. I did not ask about any other medication changes today.August 22, 2021 neurology follow-up reviewed:Since May 30, 2021, he initially says that he has a headache like usual. I asked him specifically how it is going on Aimovig 140 mg/mL which changed from Ajovy after it was approved in April 2021. He says that it is also, that it works much better than the other 1 and that it only takes a minute for the autoinjection. He says there is no welt on his leg and he is able to walk.He says that the migraines are not so bad sometimes. There are certain days where the migraine is only a 3/10. There are still some days that are off the scale where his jaw feels broken and he feels like he wants to . They are worsened by the weather and wishes that he could f ix the weather problem. When asked how many days per week or per month he has severe migraines versus less severe, it is bad a lot of the time and he says that today is a good day where he is able to stand up and talk but his head is still pounding.He has tried riztriptan for breakthrough migraine and does not think it is helping. We had given him a prescription for Eletriptan at his last visit in May but it was denied by insurance and he was given a subsequent prescription for rizatriptan. This was a change from prior sumatriptan which he also did not find helpful. He has not had a side effect from either. Presenting symptomatology is reviewed from October 07, 2018 initial neurology consultation: He has had daily continuous migraine for many years, as long as he can remember. There was no trauma, illness or other life event associated with onset of this situation. Migraine fluctuates during the day, but there is always at least a little bit of pain. When it gets bad, it may emerge as intense stabbing in his eye, almost always his right eye, but at least a few times his left eye. Other times there is pounding throughout his head. He has daily continuous intense photophobia so that he always needs to wear sunglasses and he rarely goes out during the daytime. He has light sensitivity only when bad migraine is present. He has nausea with bad migraine and frequent emesis. Sometimes there is blood with his emesis. Primary care is aware of this. He does not drink alcohol as it makes his headache worse. The only caffeinated drink he takes his coffee and that only rarely. He reports no medications. He has tried all the medications. Once that he remembers include Depakote, which did not help headache, and Botox injections, which may headache worse. He also tried topiramate which did not help his headaches. ANTONIA TOMLINSON PA-C [address] [facility] [place], [phone], [facility] 10/26/2021 13:25:06 07/03/2022 text/html Follow-up With new focus on multifocal twitching. There are also migraine. He is seen via telemedicine today. He continues to wear sunglasses.Since October 17, 2021 neurology follow-up with Antonia VANESSA, he will as wanted to talk about twitching that has been going on since his 30s, slowly increasing in frequency since it began. Twitching is a painless, fast, single movement for two or three such movements in quick succession of right or left arm or leg, hand or of neck. He is able to see the twitch if he happens to be looking. He cannot stop.A twitch episode happens about twice in a day, maybe more, maybe less. Right or left or any of the above described locations are equally likely. There is no predisposition for a twitch to occur if he is tired, at waking, before bed or with any particular position or activity.Twitching began without any correlation with an injury or a significant event that he can remember. He is not on any of the medications that he might of been taking at the time and he remembers no correlation of changing of twitching with any changes of medication over the years. >>>>>>>>>>>>>>>>>>> Antonia VANESSA encounter October 17ince his August neurology follow-up, he is doing terribly. 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 He contacted the office and ultimately, we requested prior authorization from his insurance which was approved and I sent a prescription to his pharmacy in [place] and his appointment was moved out so that he would have a chance to try it.Migraines remain about the same as his last visit. I recollected as a hint of improvement, back that he said the migraines are not so bad sometimes and sometimes they of 3 out of 10 days and then there is days where it is really bad and the jaw feels like it is going to break. Currently says they are about the same before, not necessarily improved. I did not ask about any other medication changes today.>>>>>>>>>>>>>> >>>>> Antonia Tomlinson neurology PA encounter August 22, 2021 :Since May 30, 2021, he initially says that he has a headache like usual. I asked him specifically how it is going on Aimovig 140 mg/mL which changed from Ajovy after it was approved in April 2021. He says that it is also, that it works much better than the other 1 and that it only takes a minute for the autoinjection. He says there is no welt on his leg and he is able to walk.He says that the migraines are not so bad sometimes. There are certain days where the migraine is only a 3/10. There are still some days that are off the scale where his jaw feels broken and he feels like he wants to . They are worsened by the weather and wishes that he could f ix the weather problem. When asked how many days per week or per month he has severe migraines versus less severe, it is bad a lot of the time and he says that today is a good day where he is able to stand up and talk but his head is still pounding.He has tried riztriptan for breakthrough migraine and does not think it is helping. We had given him a prescription for Eletriptan at his last visit in May but it was denied by insurance and he was given a subsequent prescription for rizatriptan. This was a change from prior sumatriptan which he also did not find helpful. He has not had a side effect from either. Presenting symptomatology is reviewed from October 07, 2018 initial neurology consultation: He has had daily continuous migraine for many years, as long as he can remember. There was no trauma, illness or other life event associated with onset of this situation. Migraine fluctuates during the day, but there is always at least a little bit of pain. When it gets bad, it may emerge as intense stabbing in his eye, almost always his right eye, but at least a few times his left eye. Other times there is pounding throughout his head. He has daily continuous intense photophobia so that he always needs to wear sunglasses and he rarely goes out during the daytime. He has light sensitivity only when bad migraine is present. He has nausea with bad migraine and frequent emesis. Sometimes there is blood with his emesis. Primary care is aware of this. He does not drink alcohol as it makes his headache worse. The only caffeinated drink he takes his coffee and that only rarely. He reports no medications. He has tried all the medications. Once that he remembers include Depakote, which did not help headache, and Botox injections, which may headache worse. He also tried topiramate which did not help his headaches. Saji Callahan MD [address] [place] [address] [place], [phone], [facility] 07/03/2022 15:48:11 08/14/2022 text/html Follow-up With new focus on multifocal twitching. There are also migraine. He is seen via telemedicine today. He continues to wear sunglasses. Since July 03, 2022 neurology follow-up encounter, he still notices that a moving 140 mg monthly subcutaneous migraine prevention injection helps reduce the intensity of migraines compared to previous CGRP inhibitor medications. Ubrelvy for migraine breakthrough is now only helping ~50% of the time, even if he takes it early enough. Times when it does not help seem to correspond with when bad weather comes in, bad enough so that there is a significant pressure drop. Adds more information about his twitching: Twitching around his wrists and hands is associated with wrist and hand pain. Carpal tunnel syndrome has been suggested. He wonders my opinion. We agree that he will follow-up in office next time and I will examine. >>>>>>>>>>>>>>>>>>> July 03, 2022Since October 17, 2021 neurology follow-up with Antonia Tomlinson neurology PA, he will as wanted to talk about twitching that has been going on since his 30s, slowly increasing in frequency since it began. Twitching is a painless, fast, single movement for two or three such movements in quick succession of right or left arm or leg, hand or of neck. He is able to see the twitch if he happens to be looking. He cannot stop.A twitch episode happens about twice in a day, maybe more, maybe less. Right or left or any of the above described locations are equally likely. There is no predisposition for a twitch to occur if he is tired, at waking, before bed or with any particular position or activity.Twitching began without any correlation with an injury or a significant event that he can remember. He is not on any of the medications that he might of been taking at the time and he remembers no correlation of changing of twitching with any changes of medication over the years. >>>>>>>>>>>>>>>>>>> Antonia Tomlinson neurology PA encounter October 17ince his August neurology follow-up, he is doing terribly. 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 He contacted the office and ultimately, we requested prior authorization from his insurance which was approved and I sent a prescription to his pharmacy in [place] and his appointment was moved out so that he would have a chance to try it.Migraines remain about the same as his last visit. I recollected as a hint of improvement, back that he said the migraines are not so bad sometimes and sometimes they of 3 out of 10 days and then there is days where it is really bad and the jaw feels like it is going to break. Currently says they are about the same before, not necessarily improved. I did not ask about any other medication changes today.>>>>>>>>>>>>>> >>>>> Antonia Tomlinson neurology PA encounter August 22, 2021 :Since May 30, 2021, he initially says that he has a headache like usual. I asked him specifically how it is going on Aimovig 140 mg/mL which changed from Ajovy after it was approved in April 2021. He says that it is also, that it works much better than the other 1 and that it only takes a minute for the autoinjection. He says there is no welt on his leg and he is able to walk.He says that the migraines are not so bad sometimes. There are certain days where the migraine is only a 3/10. There are still some days that are off the scale where his jaw feels broken and he feels like he wants to . They are worsened by the weather and wishes that he could f ix the weather problem. When asked how many days per week or per month he has severe migraines versus less severe, it is bad a lot of the time and he says that today is a good day where he is able to stand up and talk but his head is still pounding.He has tried riztriptan for breakthrough migraine and does not think it is helping. We had given him a prescription for Eletriptan at his last visit in May but it was denied by insurance and he was given a subsequent prescription for rizatriptan. This was a change from prior sumatriptan which he also did not find helpful. He has not had a side effect from either. Presenting symptomatology is reviewed from October 07, 2018 initial neurology consultation: He has had daily continuous migraine for many years, as long as he can remember. There was no trauma, illness or other life event associated with onset of this situation. Migraine fluctuates during the day, but there is always at least a little bit of pain. When it gets bad, it may emerge as intense stabbing in his eye, almost always his right eye, but at least a few times his left eye. Other times there is pounding throughout his head. He has daily continuous intense photophobia so that he always needs to wear sunglasses and he rarely goes out during the daytime. He has light sensitivity only when bad migraine is present. He has nausea with bad migraine and frequent emesis. Sometimes there is blood with his emesis. Primary care is aware of this. He does not drink alcohol as it makes his headache worse. The only caffeinated drink he takes his coffee and that only rarely. He reports no medications. He has tried all the medications. Once that he remembers include Depakote, which did not help headache, and Botox injections, which may headache worse. He also tried topiramate which did not help his headaches. Saji Callahan MD [address] [place] [address] [place], [phone], [facility] 08/14/2022 16:53:10
== END 2025-02-01 09:47 | disposition home or self-care (01) ==
LOC: HO.NEURO 09:46
PROVIDERS: PCP Internal Medicine; Visit Provider Nurse Practitioner
DX: M25.531 Pain in right wrist (principal); R25.1 Tremor, unspecified
CPT/HCPCS: 95886; 95913; 99212

== ENCOUNTER 2025-02-01 10:33 | Outpatient (AMB) | payer OTHER, SELFPAY ==
--- NOTE | 2025-02-01 10:36 | MHC.OFFVIS ---
Vital Signs 02/01/25 11:40 Height 5 ft 11 in Weight 190 lb BMI 26.5 BP 126/78 Blood Pressure Location Lt brachial Position Sitting Respiration 17 Pulse 92 Pulse Source Pulse Oximeter Pulse Oximetry (%) 95 Oxygen Delivery Method Room Air Intake Visit Reasons: 1m Accompanied by: Spouse Allergies egg Allergy (Unknown, Verified 12/28/24 09:39) Unknown latex Allergy (Unknown, Verified 12/28/24 09:39) Unknown HPI Comments Details: Chepe is a 44-year-old male patient with a past medical history of Asperger's disorder, chronic cervical pain, chronic low back pain, degenerative arthritis of the cervical spine, migraines with aura, mood disorder, insomnia, and tremor of both hands who I was following at [facility] for migraine. He is here today to reestablish care as a new patient at [facility]. Chepe has had headaches since childhood and have perhaps worsened into his adulthood. Headaches have always been a part of his day-to-day life and he feels that his headaches have been relatively consistent the wax and wane in severity and intensity but can become incapacitating. Headaches can often be accompanied by colors in his vision, light sensitivity, sound sensitivity, and nausea as well as vomiting when headaches become more severe. His headaches can be holocephalic. He has tried numerous first-line agents in the past that have been unsuccessful including: Topiramate-no benefit Lyrica-no benefit Aimovig-no benefit Emgality-no benefit Aimovig-140 currently on with some benefit Ubrelvy-no benefit Overall, he feels that the Aimovig 140 mg subcutaneous monthly injection has helped somewhat to improve the severity of his migraines. He still however has a migraine/some level of head pain every day. Head pain can move around but sometimes can be holocephalic or predominantly behind his right eye. Pain can be sharp or throbbing. He continues to have nausea, vomiting, severe light and sound sensitivity with many of his more intense migraines. During our last visit together I send a prior authorization for [facility] for him for acute therapy. This works well for headache abortive therapy. At our last visit together, he had mentioned his sleep quality was very poor and in the past he had tried clonidine as well as trazodone which were unsuccessful and also cause some adverse effects. He had tried 5 mg of his girlfriend's Ambien which she felt worked well. I had ordered 5 mg for him and he was instructed to take this apart from his Lyrica to avoid over-sedation. He also noted that his right wrist has been extremely painful. Pain radiates into his hand and at times causes some numbness and tingling sensations throughout the whole hand. He does not have any pain in the upper part of his extremity however the pain is more localized to the wrist and hand area. This has been impacting his ability to work on his computer. He does note that he has had an EMG study perhaps about 4 years ago and he remembers that it was normal at that time. His symptoms however since then have worsened. At the time of his last visit, I ordered an EMG study and sent for the Nurtec as well as Fioricet to use sparingly. Today he reports that overall his headaches have remained relatively the same though he does have substantial benefit with the Nurtec. He feels however that 8 during the month is not enough and he is hopeful to get additional tablets as he still has frequent breakthrough migraine despite his compliance with Aimovig. Sleep continues to be somewhat difficult though he has had some improvement with the 5 mg of Ambien. He does mentioned clenching in the past and has a mouth guard but does not currently wear it. He has been waking up with jaw pain. He does feel that a lot of his headaches are related to muscle tension as when they become more severe he finds that this is during times of tension. His EMG study conducted 02/02/2025 showed: Findings: There was mild slowing of ulnar motor conduction velocity across elbow. Otherwise no significant abnormality was noted. Impression: Mild left ulnar neuropathy across elbow [facility] Medical History (Updated 01/14/25 @ 12:57 by Nataly Vasquez CNP) Seasonal allergies Transaminitis Urinary frequency Tremor of both hands Schizotypal personality disorder Pompholyx eczema Polyarthralgia Other insomnia Obesity Mood disorder Migraine without aura Chronic low back pain Chronic cervical pain Asperger's disorder Review of Systems Const All systems reviewed & are unremarkable except as noted in HPI and below Physical Exam Vital Signs: Last Vital Signs Pulse 92 02/01/25 11:40 Resp 17 02/01/25 11:40 BP 126/78 02/01/25 11:40 Pulse Ox 95 02/01/25 11:40 Oxygen Delivery Method Room Air 02/01/25 11:40 BMI result Body Mass Index 26.5 Const General: cooperative, healthy appearing, comfortable and no acute distress Nutritional Appearance: well nourished Orientation/consciousness: patient oriented x3 Limitations: no limitations HEENT Head: Yes normal to inspection and Yes normocephalic Eyes General: appearance normal, both eyes and all related structures Visual Gonzalez: normal visual gonzalez by confrontation Alignment and Position: alignment normal Periorbital: periorbital findings normal Eyelids: Yes eyelids normal Conjunctivae: conjunctivae normal Sclerae: sclerae normal Neuro General: patient oriented x3, tone normal and deep tendon reflexes 2+ bilaterally Cranial nerves: Yes CN's II-XII intact bilaterally and Yes Facial sensation intact/muscles of mastication intact Cognition (Neuro): normal cognition Gait exam (Neuro): Normal gait present Motor exam (neuro): 5/5 motor strength present throughout, no tremor noted and Other motor observations present (No weakness to his R wrist however he did have pain to his R wrist with ROM) Sensory Exam: double simultaneous stimulation for sensation normal Romberg Test: Negative Pupils: Normal pupillary reactivity/response: bilateral Psych Appearance: grossly normal Mental Status: mental status grossly normal Speech and movement: Normal speech and movement present and Clear speech present Affect: normal affect Attitude: cooperative Thought process: Normal thought process present Thought content: Normal thought content present Insight: Good insight present (Psych) Judgement: Good judgement present (Psych) Assessment & Plan Assessment & Plan (1) Chronic migraine without aura without status migrainosus, not intractable: Code(s): G43.709 - Chronic migraine without aura, not intractable, without status migrainosus Category: Medical (2) Tremor of left hand: Code(s): R25.1 - Tremor, unspecified Category: Medical (3) Right wrist pain: Code(s): M25.531 - Pain in right wrist Category: Medical (4) Insomnia: Code(s): G47.00 - Insomnia, unspecified Category: Medical Plan Chepe is a 44-year-old male patient with a past medical history of Asperger's disorder, chronic cervical pain, chronic low back pain, degenerative arthritis of the cervical spine, migraines with aura, mood disorder, insomnia, and tremor of both hands who I was following at [facility] for migraine. He is here today to reestablish care as a new patient at [facility]. In efforts to better address his sleep which may be playing a role in his headaches, I will increase his Ambien to 10 mg but in doing this discontinue his Lyrica. For his chronic pain, I will switch him to venlafaxine which can also benefit his headache and moods. He is open to a trial of this. I am hopeful that this may also help to improve his clenching at night. His right wrist pain is from an unknown origin. His EMG was nondiagnostic. We did however discuss use of a tens unit that he has a available at home for help/means of pain control. He should continue to discuss with the primary care as it does not appear to be neurological. -increase Ambien to 10 mg nightly -increased quantity of Nurtec from 8-16 -encourage use of mouth guard at nighttime -trial of venlafaxine 37.5mg daily for pain management and headache in the setting of mood disturbances -discontinue Lyrica -tens unit for right-sided wrist pain and follow up with primary care -follow up in 1 month Medications: New venlafaxine ER 37.5 mg PO DAILY 30 caps 5RF 30 days zolpidem (Ambien) 10 mg PO BEDTIME PRN 30 tabs 5RF sleep 30 days rimegepant (Nurtec ODT) 75 mg PO DAILY PRN 16 tabs 5RF migraine headache Discontinued zolpidem (Ambien) Discontinued Reason: Doctor's Order 5 mg PO BEDTIME PRN 30 tabs 5RF sleep rimegepant (Nurtec ODT) Discontinued Reason: Doctor's Order 75 mg PO Q OTHER DAY PRN 8 tabs 5RF migraine headache Coding Level of Care Code Est Pt Level 4 (86040) Diagnoses Chronic migraine without aura without status migrainosus, not intractable G43.709 Tremor of left hand R25.1 Right wrist pain M25.531 Insomnia G47.00
[2025-02-01 11:40] VITALS: BP 126/78; PULSE 92; RESP 17; O2SAT 95; BMI 26.5
== END 2025-02-01 12:36 | disposition home or self-care (01) ==
LOC: HO.HSM 10:33
PROVIDERS: PCP Internal Medicine; Visit Provider Nurse Practitioner
DX: G43.709 Chronic migraine without aura, not intractable, without status migrainosus (principal); R25.1 Tremor, unspecified; M25.531 Pain in right wrist; G47.00 Insomnia, unspecified
CPT/HCPCS: 99214

== ENCOUNTER 2025-03-04 08:38 | Outpatient (AMB) | payer OTHER, SELFPAY ==
--- NOTE | 2025-03-04 08:41 | A.OFFVIS_ITS ---
Vital Signs 03/04/25 09:28 Height 5 ft 11 in Weight 190 lb BMI 26.5 BP 138/92 H Blood Pressure Location Lt brachial Position Sitting Respiration 16 Pulse 96 Pulse Source Pulse Oximeter Pulse Oximetry (%) 96 Oxygen Delivery Method Room Air Intake Visit Reasons: 1m Desulphuring Operator Required: No Accompanied by: Spouse Allergies egg Allergy (Unknown, Verified 12/28/24 09:39) Unknown latex Allergy (Unknown, Verified 12/28/24 09:39) Unknown HPI Comments Details: Chepe is a 44-year-old male patient with a past medical history of Asperger's disorder, chronic cervical pain, chronic low back pain, degenerative arthritis of the cervical spine, migraines with aura, mood disorder, insomnia, and tremor of both hands. Chepe has had headaches since childhood and have perhaps worsened into his adulthood. Headaches have always been a part of his day-to-day life and he feels that his headaches have been relatively consistent the wax and wane in severity and intensity but can become incapacitating. Headaches can often be accompanied by colors in his vision, light sensitivity, sound sensitivity, and nausea as well as vomiting when headaches become more severe. His headaches can be holocephalic. He has tried numerous first-line agents in the past that have been unsuccessful including: Topiramate-no benefit Lyrica-no benefit Aimovig-no benefit Emgality-no benefit Aimovig-140 currently on with some benefit Ubrelvy-no benefit Overall, he feels that the Aimovig 140 mg subcutaneous monthly injection has helped somewhat to improve the severity of his migraines. He still however has a migraine/some level of head pain every day. Head pain can move around but sometimes can be holocephalic or predominantly behind his right eye. Pain can be sharp or throbbing. He continues to have nausea, vomiting, severe light and sound sensitivity with many of his more intense migraines. He has been using Nurtec 75 mg daily benefit Constantino purposes he will use Fioricet. At more recent visits, we have also been addressing his sleep. He has reported some improvement with the Ambien and at last visit we did increase him to 10 mg nightly. For added headache benefit, we did try venlafaxine at last visit especially given that he has some mood disturbances. Unfortunately, this caused vivid dreams and he did not continue. He also noted that his right wrist has been extremely painful. Pain radiates into his hand and at times causes some numbness and tingling sensations throughout the whole hand. He does not have any pain in the upper part of his extremity however the pain is more localized to the wrist and hand area. This has been impacting his ability to work on his computer. He does note that he has had an EMG study perhaps about 4 years ago and he remembers that it was normal at that time. His symptoms however since then have worsened. His EMG study to the right upper extremity was normal. His left upper extremity however did show a mild ulnar neuropathy. His headaches has been relatively stable but still occurring daily while on the Aimovig. There was some difficulty with his auto injectors in the last 2 injectors failed to work properly. He has technically been without Aimovig for about a month and has seen an increase in his migraines without the Aimovig. (He brought the injection in today which I performed for him to the left umbilicus subcutaneous fat. [id number] expiration 08/21/2026). Today he reports that overall his headaches have remained relatively the same though he does have substantial benefit with the Nurtec. He feels however that 8 during the month is not enough and he is hopeful to get additional tablets as he still has frequent breakthrough migraine despite his compliance with Aimovig. EMG 02/02/2025 showed: Findings: There was mild slowing of ulnar motor conduction velocity across elbow. Otherwise no significant abnormality was noted. Impression: Mild left ulnar neuropathy across elbow [facility] Medical History (Updated 01/14/25 @ 12:57 by Nataly Vasquez CNP) Seasonal allergies Transaminitis Urinary frequency Tremor of both hands Schizotypal personality disorder Pompholyx eczema Polyarthralgia Other insomnia Obesity Mood disorder Migraine without aura Chronic low back pain Chronic cervical pain Asperger's disorder Review of Systems Const All systems reviewed & are unremarkable except as noted in HPI and below Physical Exam Vital Signs: Last Vital Signs Pulse 96 03/04/25 09:28 Resp 16 03/04/25 09:28 BP 138/92 H 03/04/25 09:28 Pulse Ox 96 03/04/25 09:28 Oxygen Delivery Method Room Air 03/04/25 09:28 BMI result Body Mass Index 26.5 Const General: cooperative, healthy appearing, comfortable and no acute distress Nutritional Appearance: well nourished Orientation/consciousness: patient oriented x3 Limitations: no limitations HEENT Head: Yes normal to inspection and Yes normocephalic Eyes General: appearance normal, both eyes and all related structures Visual Gonzalez: normal visual gonzalez by confrontation Alignment and Position: alignment normal Periorbital: periorbital findings normal Eyelids: Yes eyelids normal Conjunctivae: conjunctivae normal Sclerae: sclerae normal Neuro General: patient oriented x3, tone normal and deep tendon reflexes 2+ bilaterally Cranial nerves: Yes CN's II-XII intact bilaterally and Yes Facial sensation intact/muscles of mastication intact Cognition (Neuro): normal cognition Gait exam (Neuro): Normal gait present Motor exam (neuro): 5/5 motor strength present throughout, no tremor noted and Other motor observations present (No weakness to his R wrist however he did have pain to his R wrist with ROM) Sensory Exam: double simultaneous stimulation for sensation normal Romberg Test: Negative Pupils: Normal pupillary reactivity/response: bilateral Psych Appearance: grossly normal Mental Status: mental status grossly normal Speech and movement: Normal speech and movement present and Clear speech present Affect: normal affect Attitude: cooperative Thought process: Normal thought process present Thought content: Normal thought content present Insight: Good insight present (Psych) Judgement: Good judgement present (Psych) Assessment & Plan Assessment & Plan (1) Chronic migraine without aura without status migrainosus, not intractable: Code(s): G43.709 - Chronic migraine without aura, not intractable, without status migrainosus Category: Medical (2) Tremor of left hand: Code(s): R25.1 - Tremor, unspecified Category: Medical (3) Right wrist pain: Code(s): M25.531 - Pain in right wrist Category: Medical (4) Insomnia: Code(s): G47.00 - Insomnia, unspecified Category: Medical Plan Chepe is a 44-year-old male patient with a past medical history of Asperger's disorder, chronic cervical pain, chronic low back pain, degenerative arthritis of the cervical spine, migraines with aura, mood disorder, insomnia, and tremor of both hands. We will continue his same regimen for now as he has seen improvement with his migraines and sleep. His right wrist pain is from an unknown origin. His EMG was nondiagnostic. We did however discuss use of a tens unit that he has a available at home for help/means of pain control. He should continue to discuss with the primary care as it does not appear to be neurological. -Ambien to 10 mg nightly -Nurtec 75 mg as needed -encourage use of mouth guard at nighttime -tens unit for right-sided wrist pain and follow up with primary care -follow up in 1 month Coding Level of Care Code Est Pt Level 3 (75145) Diagnoses Chronic migraine without aura without status migrainosus, not intractable G43.709 Tremor of left hand R25.1 Right wrist pain M25.531 Insomnia G47.00
[2025-03-04 09:28] VITALS: BP 138/92; PULSE 96; RESP 16; O2SAT 96; BMI 26.5
== END 2025-03-04 09:46 | disposition home or self-care (01) ==
LOC: HO.HSM 08:39
PROVIDERS: PCP Internal Medicine; Visit Provider Nurse Practitioner
DX: G43.709 Chronic migraine without aura, not intractable, without status migrainosus (principal); R25.1 Tremor, unspecified; M25.531 Pain in right wrist; G47.00 Insomnia, unspecified
CPT/HCPCS: 99213

== ENCOUNTER → 2025-03-04 08:38 | Outpatient (BNVA) | payer OTHER, SELFPAY | PROVIDERS: PCP Internal Medicine; Visit Provider Nurse Practitioner | DX: G43.709 Chronic migraine without aura, not intractable, without status migrainosus (principal); R25.1 Tremor, unspecified; M25.531 Pain in right wrist; G47.00 Insomnia, unspecified | CPT/HCPCS: 99212 ==